=== PATIENT | female | born 1930 | race Caucasian/White ===

== ENCOUNTER 2019-09-22 14:54 | Emergency (ER) | payer MEDICARE, OTHER ==
[~2019-09-22] VITALS: Ht 172.7 cm; Wt 67.6 kg
[~2019-09-22 14:54] MED LIST: ATENOLOL100 MG PO; FENOFIBRATE PO; GLIPIZIDE5 MG PO; JANUVIA100 MG PO; METFORMIN HCL850 MG PO; SIMVASTATIN20 MG PO
[2019-09-22] MEDS ORDERED: RIVAROXABAN 20 MG TABLET PO SCH (16:45)
[2019-09-22 17:31] LABS: BASOPHILS # (AUTO) 0.1 (0.0-0.1); BASOPHILS % 0.7 % (0.0-1.0); EOSINOPHILS # (AUTO) 0.2 (0.0-0.4); EOSINOPHILS % 2.6 % (0.0-6.0); HEMATOCRIT 40.7 % (34.2-44.1); HEMOGLOBIN 13.3 g/dL (12.0-16.0); LYMPHOCYTES # (AUTO) 2.1 (1.0-3.2); LYMPHOCYTES % 25.2 % (18.0-39.1); MEAN CORPUSCULAR HEMOGLOBIN 31.7 pg (28-32); MEAN CORPUSCULAR HGB CONC 32.7 g/dL (31-35); MEAN CORPUSCULAR VOLUME 96.9 fL (81-99); MONOCYTES # (AUTO) 0.8 (0.2-0.8); MONOCYTES % 8.8 % (4.4-11.3); NEUTROPHILS # (AUTO) 5.3 (2.1-6.9); NEUTROPHILS % 62.3 % (38.7-80.0); PLATELET COUNT 256 x10e3/uL (140-360); RED CELL DISTRIBUTION WIDTH 13.4 % (11.7-14.4)
[2019-09-22 18:32] VITALS: BP 134/76
== END 2019-09-22 18:33 | disposition home or self-care (01) ==
LOC: ER 14:54
DX: M79.604 Pain in right leg (principal); I82.431 Acute embolism and thrombosis of right popliteal vein; I10 Essential (primary) hypertension; E11.9 Type 2 diabetes mellitus without complications; E78.5 Hyperlipidemia, unspecified
CPT/HCPCS: 36415; 85025; 93971; 99284